=== PATIENT | female | born 1985 | race Caucasian/White ===

== ENCOUNTER 2016-06-22 12:42 | Emergency (ER) | payer MEDICAID, OTHER ==
--- NOTE | 2016-06-22 13:16 | CPEKG ---
Heart Rate: 83 RR Interval: 723 P-R Interval: 160 QRSD Interval: 78 QT Interval: 360 QTC Interval: 423 P [place]: 74 QRS [place]: 65 T Wave [place]: 55 EKG Severity - NORMAL ECG - EKG Impression: SINUS RHYTHM Electronically Signed By: Kenyon Cunha 23-Jun-2016 00:25:30
--- NOTE | 2016-06-22 13:18 | EDPHY ---
H & P Stated Complaint: anxious/htn/dizzy Time Seen by Provider: 06/22/16 13:18 - Personal History LMP (Females 10-55): Extended Cycle BCP/Inj Current Tetanus/Diphtheria Vaccine: Yes - Medical/Surgical History Hx Asthma: No Hx Chronic Respiratory Disease: No Hx Diabetes: No Hx Cardiac Disease: No Hx Renal Disease: No Hx Cirrhosis: No Hx Alcoholism: No Hx HIV/AIDS: No Hx Splenectomy or Spleen Trauma: No Other PMH: anxiety - Social History Smoking Status: Current every day smoker Constitutional: Initial Vital Signs Temperature (C) 36.5 C 06/22/16 12:45 Heart Rate 104 H 06/22/16 12:45 Respiratory Rate 22 H 06/22/16 12:45 Blood Pressure 137/104 H 06/22/16 12:45 O2 Sat (%) 98 06/22/16 12:45 O2 Delivery Mode Room Air Allergies/Adverse Reactions: cephalexin monohydrate [From Keflex] Allergy (Verified 06/22/16 12:44) Home Medications: Medication Instructions Recorded Adderall 30 mg Tablet 06/22/16 Xanax 06/22/16 Medical Decision Making ED Course/Re-evaluation: CHIEF COMPLAINT: Multiple neurological complaints. HISTORY OF PRESENT ILLNESS: This patient is a 31 year old female who presents to the Emergency Department complaining of dizziness, tunnel vision, heart palpitations, and left-sided weakness and paresthesias first presenting while at work on Tuesday evening. She reports hypertension at 160/115 and tachycardia at 110 at that time. She took a Xanax at that time without improvement to her symptoms which have persisted to today. Upon arrival, she also complains of shortness of breath and fatigue. She describes her paresthesias and weakness are primarily localized to the upper extremity and face. She has never experienced symptoms like this previously. She has a history of panic attacks but describes a global presentation for prior panic attacks different from current symptoms. REVIEW OF SYSTEMS: A 10 point review of systems was performed and is negative with the exception of the elements mentioned in the history of present illness. PHYSICAL EXAM: HR 104, BP 137/104, O2 Sat 98%, RR 22. Temp noted General Appearance: Alert, well hydrated, appropriate, and non-toxic appearing. Head: Atraumatic without scalp tenderness or obvious injury Eyes: Pupils equal, round, reactive to light and accommodation, EOMI, no trauma , no injection. Ears: Clear bilaterally, no perforation, normal landmarks Nose: Atraumatic, no rhinorrhea, clear. Throat: There is no erythema or exudates, no lesions, normal tonsils, mucus membranes moist. Neck: Supple, 2+ carotid upstroke, nontender, no lymphadenopathy. Respiratory: No retractions, no distress, no wheezes, and no accessory muscle use. Lungs are clear to auscultation bilaterally. Cardiovascular: Regular rate and rhythm, no murmurs, rubs, or gallops. Bilateral carotid, radial, dorsalis pedis, and posterior tibial pulses intact. Good capillary refill all extremities. Gastrointestinal: Abdomen is soft, nontender, non-distended, no masses, no rebound, no guarding, no peritoneal signs. Musculoskeletal: Normal active ROM of all extremities, atraumatic. Neurological: Alert, appropriate, and interactive. The patient has normal DTRs and non-focal cranial nerves, and cerebellar exam. Left lateral nystagmus. Mild sensory and motor deficits to the left lower and upper extremity. Equal bilateral hand tremors. Abnormal finger to nose test bilaterally. Skin: No rashes, good turgor, no nodules on palpation. Past medical history: Intermittent hypertension, syncope, panic attacks. Past surgical history: Non-contributory. Family history: Early-onset Alzheimer's Disease, CAD, CVA. No family history of MS. 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 Smokes marijuana and tobacco daily. DIAGNOSTICS/PROCEDURES/CRITICAL CARE TIME: EKG INTERPRETATION: The 12 lead EKG was interpreted by myself: Sinus rhythm, rate 83; no ischemic changes. See hard copy and/or "tracemaster" electronic copy for interpretation. IMAGING: Study: MRI of the brain Indication: Multiple neurological deficits Results: MRI of the brain was obtained. The results of the study are: normal. The study was read by the radiologist, Dr. Piter Schneider. I viewed the images myself on the PACS system. Study: MRI of the cervical spine Indication: Multiple neurological deficits Results: MRI of the cervical spine was obtained. The results of the study are: normal. The study was read by the radiologist, Dr. Piter Schneider. I viewed the images myself on the PACS system. DIFFERENTIAL DIAGNOSIS: Differential diagnosis for this patient's neurological complaints include but is not limited to: multiple sclerosis, CVA, TIA, or blood clots. MEDICAL DECISION MAKING: This 31 year old female presents with multiple focal neurological deficits including left-sided weakness and paresthesias extending from the lower extremity to the upper extremity, chest and face. On exam, she has apparent cerebellar abnormalities. Will proceed with MRI of the brain and cervical spine as well as labs, including D-dimer. Labs obtained and are within normal ranges. D-dimer is negative. 1620: Imaging results reported to me by radiology. I discussed imaging results with the patient as well as plan for discharge home with neurology follow-up. She is agreeable to this and will be discharged home in stable condition. - Data Points Laboratory Results: Laboratory Results 06/22/16 13:20 06/22/16 13:20 06/22/16 06/22/16 13:20 12:30 WBC 8.49 10^3/uL (3.80-9.50) RBC 4.93 10^6/uL (4.18-5.33) Hgb 15.5 g/dL (12.6-16.3) Hct 44.6 % (38.0-47.0) MCV 90.5 fL (81.5-99.8) MCH 31.4 pg (27.9-34.1) MCHC 34.8 g/dL (32.4-36.7) RDW 12.1 % (11.5-15.2) Plt Count 249 10^3/uL (150-400) MPV 11.4 fL (8.7-11.7) Neut % (Auto) 62.7 % (39.3-74.2) Lymph % (Auto) 26.7 % (15.0-45.0) [place] % (Auto) 7.4 % (4.5-13.0) Eos % (Auto) 2.6 % (0.6-7.6) Baso % (Auto) 0.4 % (0.3-1.7) Nucleat RBC Rel Count 0.0 % (0.0-0.2) Absolute Neuts (auto) 5.32 10^3/uL (1.70-6.50) Absolute Lymphs (auto) 2.27 10^3/uL (1.00-3.00) Absolute Monos (auto) 0.63 10^3/uL (0.30-0.80) Absolute Eos (auto) 0.22 10^3/uL (0.03-0.40) Absolute Basos (auto) 0.03 10^3/uL (0.02-0.10) Absolute Nucleated RBC 0.00 10^3/uL (0-0.01) Immature Gran % 0.2 % (0.0-1.1) Immature Gran # 0.02 10^3/uL (0.00-0.10) D-Dimer < 0.27 ug/mLFEU (0.00-0.50) Sodium 142 mEq/L (134-144) Potassium 4.1 mEq/L (3.5-5.2) Chloride 108 mEq/L (97-110) Carbon Dioxide 22 mEq/l (22-31) Anion Gap 12 mEq/L (8-16) BUN 15 mg/dL (7-23) Creatinine 0.8 mg/dL (0.6-1.0) Estimated GFR > 60 Glucose 96 mg/dL (70-100) Calcium 9.5 mg/dL (8.5-10.4) Beta HCG, Qual NEGATIVE Departure - Departure Disposition: Home, Routine, Self-Care Clinical Impression: Paresthesia, Multiple neurological symptoms Condition: Good Instructions: Paresthesia (ED) Additional Instructions: Call to schedule a follow-up appointment with a neurologist for further evaluation. We have referred you to Dr. Ta. Return to the Emergency Department with severe headache, difficulty speaking or walking, worsening weakness, or other serious concerns. Referrals: Jonnathan Ta MD [Medical Doctor] - As per Instructions Report Scribed for: Bertram Lieberman Report Scribed by: Olivia Garibay Date of Report: 06/22/16 Time of Report: 13:35
[2016-06-22 14:22] LABS: % IMMATURE GRANULYOCYTES 0.2 % (0.0-1.1); ABSOLUTE IMMATURE GRANULOCYTES 0.02 10^3/uL (0.00-0.10); ADD DIFF? NO; ADD MORPH? NO; ADD SCAN? NO; ATYPICAL LYMPHOCYTE FLAG 10 (0-99); FRAGMENT RBC FLAG 0 (0-99); HEMATOCRIT 44.6 % (38.0-47.0); HEMOGLOBIN 15.5 g/dL (12.6-16.3); LEFT SHIFT FLG 0 (0-99); LIPEMIA HEMOLYSIS FLAG 90 (0-99); MEAN CELL HEMOGLOBIN 31.4 pg (27.9-34.1); MEAN CELL HEMOGLOBIN CONCENTR. 34.8 g/dL (32.4-36.7); MEAN CELL VOLUME 90.5 fL (81.5-99.8); MEAN PLATELET VOLUME 11.4 fL (8.7-11.7); PLATELET CLUMPS FLAG 20 (0-99); PLATELET COUNT 249 10^3/uL (150-400); RED BLOOD CELL COUNT 4.93 10^6/uL (4.18-5.33); RED CELL DISTRIBUTION WIDTH 12.1 % (11.5-15.2)
[2016-06-22 14:34] LABS: CALCIUM 9.5 mg/dL (8.5-10.4); CARBON DIOXIDE 22 mEq/l (22-31); CREATININE 0.8 mg/dL (0.6-1.0); GLOMERULAR FILTRATION RATE > 60; GLUCOSE 96 mg/dL (70-100); POTASSIUM 4.1 mEq/L (3.5-5.2); SODIUM 142 mEq/L (134-144)
[2016-06-22] MEDS ORDERED: GADOBUTROL 10 ML VIAL IVP ONE (14:38)
[2016-06-22 14:44] VITALS: O2SAT 97
[2016-06-22 15:07] LABS: ANION GAP 12 mEq/L (8-16); CHLORIDE 108 mEq/L (97-110)
[2016-06-22 16:40] VITALS: BP 143/106; PULSE 92; RESP 16; TEMP 97.9
--- NOTE | 2016-06-22 16:51 | MR ---
MRI of the Brain (Without and With Contrast) at 1436 hours Clinical Indication: Left neurological focal deficits. Technique: T1-weighted images were acquired axially and sagittally from the foramen magnum to the ve rtex. Axial fast inversion-recovery, fast T2-weighted, and diffusion-weighted axial images were obta ined, without contrast. Postcontrast multiplanar images, with the uneventful intravenous administrat ion of 8 mL Gadavist contrast. Comparison: None. Findings: The ventricles, cisterns, and sulci are normal, without atrophy, hydrocephalus, midline sh ift, herniation, or epidural/subdural hematomas. No intracranial hemorrhage or masses. Diffusion-radha ghted images demonstrate no acute infarct. Cerebellar tonsils are in normal position. Pituitary glan d is normal in size. Normal signal flow void in the superior sagittal sinus, basilar artery, and andrea ateral internal carotid arteries indicating patency. Postcontrast images demonstrate no enhancing le sions or abnormal leptomeningeal enhancement. In the left maxillary sinus, there is a 2.5- x 1.5-cm mucous retention cyst. No evidence of multiple sclerosis or demyelinating plaques on the sagittal, c oronal, and axial multiplanar FLAIR series. Impression: 1. Left maxillary sinus mucous retention cyst. 2. Otherwise normal MRI brain, without and with contrast. 3. No evidence of infarcts, hemorrhage, multiple sclerosis, or enhancing lesions. Findings and recommendations discussed with Emergency Department physician, Bertram Lieberman M.D., at 1630 hours, on June 22, 2016. Final report concurs with initial preliminary interpretation.
--- NOTE | 2016-06-22 16:53 | MR ---
MRI Cervical Spine (Without and With Contrast) History: Left neurological focal deficits. Technique: Sagittal T1, T2 and axial T1, T2 MR sequences of the cervical spine without contrast. Post contrast sagittal and axial T1-weighted sequences obtained with the uneventful intravenous administra tion of 8 mL Gadavist contrast for the MRI brain and cervical spine. Findings: Normal cervical alignment without spondylolisthesis. Cervical vertebral bodies are lou l height without compression fractures or spondylolisthesis. Cerebellar tonsils are in normal positi on. Cervical spinal cord demonstrates normal signal without cord edema or myelomalacia. C2-C3: No disk herniation or stenosis. C3-C4: No disk herniation or stenosis. C4-C5: No disk herniation or stenosis. C5-C6: No disk herniation or stenosis. C6-C7: No disk herniation or stenosis. C7-T1: No disk herniation or stenosis. No enhancing lesions, diskitis, or osteomyelitis. No evidence of cervical spinal cord demyelinating plaques, cord compression, myelomalacia, or enhanci ng lesions. Impression: 1. Normal MRI of the cervical spine without and with contrast. 2. No cervical disk herniations, cord compression or stenosis. 3. No evidence of cervical spinal cord demyelinating plaques or enhancing lesions. Findings and recommendations discussed with Emergency Department physician, Dr. Bertram Lieberman, at 16 30 hours June 22, 2016. Final report concurs with initial preliminary interpretation.
== END 2016-06-22 16:40 | disposition home or self-care (01) ==
DX: R20.2 Paresthesia of skin (principal); R29.818 Other symptoms and signs involving the nervous system; F17.200 Nicotine dependence, unspecified, uncomplicated; I10 Essential (primary) hypertension
CPT/HCPCS: A9585